=== PATIENT | female | born 1975 ===

== ENCOUNTER 2019-11-06 09:40 | Outpatient (RCR) | payer BC, OTHER ==
[~2019-11-06 09:40] MED LIST: BIRTHCONTROL PO; HYDR1TAB PO; LVT.05T PO; LVT.088T PO
== END 2020-02-04 | disposition home or self-care (01) ==
LOC: CARD 09:40
PROVIDERS: ATTEND Internal Medicine Interventional Cardiology
DX: I47.1 Supraventricular tachycardia (principal); E03.9 Hypothyroidism, unspecified
CPT/HCPCS: 93270; 93306

== ENCOUNTER 2020-12-25 16:29 | Emergency (ER) | payer BC, OTHER ==
[~2020-12-25] VITALS: Ht 165 cm; Wt 106.0 kg
--- NOTE | 2020-12-25 16:34 | ED Abdominal Pain ---
General Stated Complaint: LOWER ADB PAIN History of Present Illness Date Seen by Provider: Dec 25, 2020 Time Seen by Provider: 16:34 Initial Comments 45-year-old female presents with lower abdominal pain. Patient reports that a week ago she gave at home via a heel slicker. That there was no complications. Patient reports that she was doing well but she has normal discomfort. However today she has significantly worse lower abdominal pain. Patient denies any urinary discomfort. Patient does report she also thinks she has some left-sided mastitis with some mild erythema, warmth and tenderness to the left breast. Patient reports maybe some mild chills but no fever, cough or other systemic complaints. Allergies and Home Medications Allergies Coded Allergies: codeine (Verified Allergy, Mild, 11/05/12) Home Medications Dicloxacillin Sodium 500 Mg Capsule, 500 MG PO QID Prescribed by: JAVIER BENAVIDEZ on 12/25/201946 Levothyroxine Sodium 88 Mcg Tablet, 88 MCG PO DAILY, (Reported) [Birthcontrol] , 1 TAB PO DAILY, (Reported) Patient Home Medication List Home Medication List Reviewed: Yes Review of Systems Review of Systems Constitutional: chills; No fever Respiratory: Denies Cough Cardiovascular: No Symptoms Reported Gastrointestinal: See HPI Genitourinary: See HPI Musculoskeletal: no symptoms reported Skin: no symptoms reported Psychiatric/Neurological: No Symptoms Reported Endocrine: No Symptoms Reported Past Gzkmhvh-Rpweeu-Lldflr Hx Seasonal Allergies Seasonal Allergies: No Past Medical History Gallbladder, Tonsillectomy Reproductive Disorders: No Sexually Transmitted Disease: No Gall Bladder Disease Hypothyroidsim Physical Exam Vital Signs Vital Signs - First Documented 12/25/20 16:34 Temp 36.3 Pulse 98 Resp 20 B/P (MAP) 127/71 (89) Pulse Ox 100 O2 Delivery Room Air Capillary Refill : Height/Weight/BMI Height: 5'5" Weight: 195lbs. oz. 88.439245lh; BMI Method: General Appearance: WD/WN, no apparent distress Respiratory: chest non-tender, lungs clear Cardiovascular: normal peripheral pulses, regular rate, rhythm Gastrointestinal: soft, tenderness (Mild suprapubic tenderness), other (Normal 1 week fundal exam with appropriate firm, no significant tenderness) Extremities: normal range of motion, non-tender Neurologic/Psychiatric: alert, normal mood/affect, oriented x 3 Skin: normal color, warm/dry Focused Exam Lactate Level 12/25/20 16:51: Lactic Acid Level 0.73 Lactic Acid Level Laboratory Tests Test 12/25/20 16:51 Lactic Acid Level 0.73 MMOL/L (0.50-2.00) Progress/Results/Core Measures Results/Orders Lab Results Laboratory Tests Test 12/25/20 16:34 12/25/20 16:44 12/25/20 16:51 Range/Units Urine Color PINK Urine Clarity SLIGHTLY CLOUDY Urine pH 6.0 5-9 Urine Specific [place] <=1.005 1.016-1.022 Urine Protein NEGATIVE NEGATIVE Urine Glucose (UA) NEGATIVE NEGATIVE Urine Ketones NEGATIVE NEGATIVE Urine Nitrite NEGATIVE NEGATIVE Urine Bilirubin NEGATIVE NEGATIVE Urine Urobilinogen 0.2 < = 1.0 MG/DL Urine Leukocyte Esterase 3+ H NEGATIVE Urine RBC (Auto) 3+ H NEGATIVE Urine RBC 10-25 H /HPF Urine WBC 50-100 H /HPF Urine Squamous Epithelial Cells 25-50 H /HPF Urine Crystals NONE /LPF Urine Bacteria MODERATE H /HPF Urine Casts NONE /LPF Urine Mucus LARGE H /LPF Urine Culture Indicated YES White Blood Count 10.1 4.3-11.0 10^3/uL Red Blood Count 4.52 3.80-5.11 10^6/uL Hemoglobin 11.8 11.5-16.0 g/dL Hematocrit 38 35-52 % Mean Corpuscular Volume 83 80-99 fL Mean Corpuscular Hemoglobin 26 25-34 pg Mean Corpuscular Hemoglobin Concent 32 32-36 g/dL Red Cell Distribution Width 13.8 10.0-14.5 % Platelet Count 299 130-400 10^3/uL Mean Platelet Volume 9.0 9.0-12.2 fL Immature Granulocyte % (Auto) 1 % Neutrophils (%) (Auto) 73 42-75 % Lymphocytes (%) (Auto) 19 12-44 % Monocytes (%) (Auto) 6 0-12 % Eosinophils (%) (Auto) 1 0-10 % Basophils (%) (Auto) 0 0-10 % Neutrophils # (Auto) 7.3 1.8-7.8 X 10^3 Lymphocytes # (Auto) 1.9 1.0-4.0 X 10^3 Monocytes # (Auto) 0.6 0.0-1.0 X 10^3 Eosinophils # (Auto) 0.1 0.0-0.3 10^3/uL Basophils # (Auto) 0.0 0.0-0.1 10^3/uL Immature Granulocyte # (Auto) 0.1 0.0-0.1 10^3/uL Sodium Level 137 135-145 MMOL/L Potassium Level 3.6 3.6-5.0 MMOL/L Chloride Level 104 98-107 MMOL/L Carbon Dioxide Level 25 21-32 MMOL/L Anion Gap 8 5-14 MMOL/L Blood Urea Nitrogen 9 7-18 MG/DL Creatinine 0.65 0.60-1.30 MG/DL Estimat Glomerular Filtration Rate 99 BUN/Creatinine Ratio 14 Glucose Level 110 H 70-105 MG/DL Calcium Level 8.3 L 8.5-10.1 MG/DL Corrected Calcium 8.6 8.5-10.1 MG/DL Total Bilirubin 0.5 0.1-1.0 MG/DL Aspartate Amino Transf (AST/SGOT) 10 5-34 U/L Alanine Aminotransferase (ALT/SGPT) 15 0-55 U/L Alkaline Phosphatase 123 40-136 U/L Total Protein 6.7 6.4-8.2 GM/DL Albumin 3.6 3.2-4.5 GM/DL Lactic Acid Level 0.73 0.50-2.00 MMOL/L My Orders Orders - BENAVIDEZ,JAVIER L DO Cbc With Automated Diff (12/25/20 16:42) Comprehensive Metabolic Panel (12/25/20 16:42) Ua Culture If Indicated (12/25/20 16:42) Blood Culture (12/25/20 16:42) Lactic Acid Analyzer (12/25/20 16:42) Abdomen Flat & Upright/Decub (12/25/20 16:42) Ed Iv/Invasive Line Start (12/25/20 16:42) Urine Culture (12/25/20 16:34) Ct Abdomen/Pelvis W (12/25/20 17:15) Cephalexin Capsule (Keflex Capsule) (12/25/20 19:45) Vital Signs/I&O 12/25/20 12/25/20 16:34 20:22 Temp 36.3 Pulse 98 98 Resp 20 20 B/P (MAP) 127/71 (89) 127/71 (89) Pulse Ox 100 100 O2 Delivery Room Air Room Air Progress Progress Note : Progress Note Patient with no vaginal discharge, fever or elevated white count. Discussed with Dr. Sam who feels is likely more of a UTI versus retained placental products based on exam labs and review a CAT scan. We will treat her with dicloxacillin for her mastitis and UTI. I did have a long discussion with patient regarding need to follow-up with her primary care provider return to the ER if she develops fever discharge or worsening lower abdominal pain. Patient voices understanding is discharged Departure Impression Primary Impression: Acute mastitis of right breast Additional Impression: Acute cystitis with hematuria Disposition: HOME, SELF-CARE Condition: Stable Departure-Patient Inst. Referrals: NO,LOCAL PHYSICIAN (PCP/Family) Primary Care Physician Patient Instructions: Mastitis, Urinary Tract Infection, Adult ED Add. Discharge Instructions: Follow-up with your primary care provider in 2 to 3 days for recheck of today's symptom Return to the ER for further evaluation if you develop fever, worsening lower abdominal pain or vaginal discharge Scripts Dicloxacillin Sodium (Dicloxacillin Sodium) 500 Mg Capsule 500 MG PO QID, #40 CAP Prov: JAVIER BENAVIDEZ DO 12/25/20 JAVIER BENAVIDEZ DO Dec 25, 2020 16:34
[2020-12-25 16:48] LABS: CLARITY,URINE SLIGHTLY CLOUDY; COLOR,URINE PINK; GLUCOSE, URINE (UA) NEGATIVE (NEGATIVE); KETONES,URINE NEGATIVE (NEGATIVE); PROTEIN,URINE NEGATIVE (NEGATIVE)
[2020-12-25 16:49] LABS: BACTERIA,URINE MODERATE /HPF; BILIRUBIN,URINE NEGATIVE (NEGATIVE); LEUKOCYTE ESTERASE ,URINE 3+ (NEGATIVE); NITRITE,URINE NEGATIVE (NEGATIVE); SQUAMOUS EPITHELIAL CELL,UR 25-50 /HPF; WBC,URINE 50-100 /HPF
[2020-12-25 16:52] LABS: BASOPHILS % (AUTO) 0 % (0-10); EOSINOPHILS # (AUTO) 0.1 10^3/uL (0.0-0.3); EOSINOPHILS % (AUTO) 1 % (0-10); HEMATOCRIT 38 % (35-52); HEMOGLOBIN 11.8 g/dL (11.5-16.0); LYMPHOCYTES # (AUTO) 1.9 X 10^3 (1.0-4.0); LYMPHOCYTES % (AUTO) 19 % (12-44); MEAN CORPUSCULAR HEMOGLOBIN 26 pg (25-34); MEAN CORPUSCULAR HGB CONC 32 g/dL (32-36); MEAN CORPUSCULAR VOLUME 83 fL (80-99); MONOCYTES # (AUTO) 0.6 X 10^3 (0.0-1.0); MONOCYTES % (AUTO) 6 % (0-12); NEUTROPHILS # (AUTO) 7.3 X 10^3 (1.8-7.8); NEUTROPHILS % (AUTO) 73 % (42-75); PLATELET COUNT 299 10^3/uL (130-400); WHITE BLOOD COUNT 10.1 10^3/uL (4.3-11.0)
[2020-12-25 17:05] LABS: BILIRUBIN,TOTAL 0.5 MG/DL (0.1-1.0); CALCIUM 8.3 MG/DL (8.5-10.1); CREATININE SERUM 0.65 MG/DL (0.60-1.30); POTASSIUM 3.6 MMOL/L (3.6-5.0); TOTAL PROTEIN 6.7 GM/DL (6.4-8.2)
[2020-12-25 17:06] LABS: ALBUMIN 3.6 GM/DL (3.2-4.5)
--- NOTE | 2020-12-25 17:11 | Diagnostic Imaging Report ---
INDICATION: Lower abdominal pain, one week . TECHNIQUE: Supine and upright view of the abdomen 4:56 PM. CORRELATION STUDY: None. FINDINGS: Lung bases appear clear. Stomach mildly distended with air-fluid level. There is gas and stool through the colon. No evidence for large fecal impaction. A few gas-filled loops of small bowel are present in a nonobstructive pattern. No evidence for free intraperitoneal air. Cholecystectomy clips in the right upper quadrant. Increased density in the lower abdomen could be owing to enlarged uterus or distended bladder. IMPRESSION: Nonobstructive appearing bowel gas pattern. Mildly prominent gas distention throughout the gastrointestinal tract could reflect a mild ileus. Dictated by: Dictated on workstation # [id number]
[2020-12-25] MEDS ORDERED: TRANEXAMIC ACID INJECTION 1,000 MG in NS (IVPB) 100 ML IV ONE (17:15)
[2020-12-25] MEDS ORDERED: NS 100 ML (IVPB) BAG IV ONE (17:45)
[2020-12-25] MEDS ORDERED: HOLD METFORMIN - RECEIVED CONTRAST 20 ML VIAL IV SCH (17:45)
[2020-12-25] MEDS ORDERED: IOHEXOL 350 MG/ML 100 ML (OMNIPAQUE 350) VIAL IV ONE (17:45)
--- NOTE | 2020-12-25 18:29 | Diagnostic Imaging Report ---
PROCEDURE: CT abdomen and pelvis with contrast. TECHNIQUE: Multiple contiguous axial images were obtained through the abdomen and pelvis after administration of intravenous contrast. Auto Exposure Controls were utilized during the CT exam to meet ALARA standards for radiation dose reduction. All CT scans use one or more of the following dose optimizing techniques: automated exposure control, MA and/or KvP adjustment based on patient size and exam type or iterative reconstruction. INDICATION: One-week , lower abdominal pain. CORRELATION STUDY: None. FINDINGS: Examination is significantly compromised by motion artifact. LOWER THORAX: Appearing generally clear given motion. Heart size normal. LIVER: Unremarkable. GALLBLADDER: Cholecystectomy. SPLEEN: Unremarkable. PANCREAS: Very questionable fullness at the pancreatic head. Definitive mass is not however appreciated. ADRENAL GLANDS: Unremarkable. KIDNEYS: Normal configuration. No calcification or obstruction. ABDOMINAL AORTA: Unremarkable, nonaneurysmal. GASTROINTESTINAL TRACT: No obstruction or inflammation. Normal appendix. URINARY BLADDER: Largely decompressed. REPRODUCTIVE: Enlarged, heterogeneous. Appears to be abnormal prominence of the endometrium which has heterogeneous appearance. Scattered areas of asymmetric enhancement. Slightly more pronounced along the right fundal aspect. No significant pelvic fluid or pelvic abscess formation. OSSEOUS STRUCTURES: No acute abnormality. OTHER: None. IMPRESSION: 1. Enlarged heterogeneous and hypervascular appearance about the uterus. Some of this may be attributed to state. There is also what appears to be abnormal ill-defined prominence of the endometrium along with increased vascularity. Given overall findings, retained products of conception would be difficult to exclude. Correlation with pelvic ultrasound imaging is recommended. 2. Very questionable slight prominence in the region of the pancreatic head. No definitive mass or peripancreatic inflammatory changes. However, if indicated, correlation with pancreatic lab values recommended. 3. This examination is markedly compromised with significant patient motion artifact. Dictated by: Dictated on workstation # [id number]
[2020-12-25] MEDS ORDERED: KETAMINE INJECTION 500 MG in NS IV 500 ML 500 ML IV SCH (18:45)
[2020-12-25] MEDS ORDERED: CEPHALEXIN 250 MG (KEFLEX) CAP PO SCH (19:45)
[2020-12-25] MEDS ORDERED: DICL500C PO (19:47)
[2020-12-25 20:22] VITALS: BP 127/71
== END 2020-12-25 20:22 | disposition home or self-care (01) ==
LOC: EDUNIT# 16:29 → ER FS 16:30
DX: N61.0 Mastitis without abscess (principal); N30.01 Acute cystitis with hematuria; E03.9 Hypothyroidism, unspecified; Z79.890 Hormone replacement therapy; Z79.899 Other long term (current) drug therapy
CPT/HCPCS: 36415; 74019; 74177; 80053; 81000; 83605; 85025; 87040; 87077; 87088

== ENCOUNTER 2021-11-03 23:30 | Emergency (ER) | payer OTHER ==
[~2021-11-03] VITALS: Ht 165 cm; Wt 106.0 kg
[~2021-11-03 23:30] MED LIST changes: +DICL500C PO
--- NOTE | 2021-11-04 00:21 | ED Lower Extremity ---
General Chief Complaint: Lower Extremity Stated Complaint: ANKLE FX Source: patient Exam Limitations: no limitations History of Present Illness Date Seen by Provider: Nov 04, 2021 Time Seen by Provider: 00:11 Initial Comments Patient is a 46-year-old female who presents to the emergency department today with a chief complaint of right ankle pain. She was walking up some carpeted steps, her left foot slipped, her right foot did not and she fell down onto her right foot. Patient states that her foot was turned in an odd direction when she was able to roll over onto her knee and try to attempt to stand. She complains of mild pain at this point, a "2-3". She states she did hit her head, she did not have a loss of consciousness. No other complaints of injury reported. She arrives in a Mathew splint. Neurovascular intact to the right foot All other review of systems reviewed and negative except as stated Onset: just prior to arrival Severity: moderate Pain/Injury Location: right ankle Method of Injury: fell Modifying Factors: Improves With Immobilization; Worse With Jarring, Worse With Movement Allergies and Home Medications Allergies Coded Allergies: codeine (Verified Allergy, Mild, 11/05/12) Patient Home Medication List Home Medication List Reviewed: Yes Dicloxacillin Sodium (Dicloxacillin Sodium) 500 Mg Capsule, 500 MG PO QID Prescribed by: JAVIER BENAVIDEZ on 12/25/201946 Levothyroxine Sodium (Levothyroxine 88 Mcg Tab) 88 Mcg Tablet, 88 MCG PO DAILY, (Reported) Entered as Reported by: TRACY CHAU on 06/19/140 [Birthcontrol] , 1 TAB PO DAILY, (Reported) Entered as Reported by: LEX SMITH on 11/05/12 0120 Review of Systems Constitutional: see HPI EENTM: no symptoms reported Respiratory: no symptoms reported Cardiovascular: no symptoms reported Gastrointestinal: no symptoms reported Musculoskeletal: joint pain (right ankle) Skin: no symptoms reported Psychiatric/Neurological: No Symptoms Reported All Other Systems Reviewed Negative Unless Noted: Yes Past Lhawxzw-Sgnrdd-Adcqel Hx Seasonal Allergies Seasonal Allergies: No Past Medical History Gallbladder, Tonsillectomy Reproductive Disorders: No Sexually Transmitted Disease: No Gall Bladder Disease Hypothyroidsim Physical Exam Vital Signs Vital Signs - First Documented 11/04/21 00:08 Temp 37.3 Pulse 66 Resp 14 B/P (MAP) 115/65 (82) Pulse Ox 98 O2 Delivery Room Air Capillary Refill : Height, Weight, BMI Height: 5'5" Weight: 195lbs. oz. 88.971756uk; 38.00 BMI Method: General Appearance: WD/WN, no apparent distress Neck: non-tender, full range of motion, normal inspection Cardiovascular: regular rate, rhythm Respiratory: lungs clear, normal breath sounds, no respiratory distress, no accessory muscle use Hips: bilateral hip non-tender, bilateral hip normal inspection, bilateral hip normal range of motion, bilateral hip no evidence of injury Legs: bilateral leg non-tender, bilateral leg normal inspection, bilateral leg normal range of motion, bilateral leg no evidence of injury Knees: bilateral knee non-tender, bilateral knee normal inspection, bilateral knee normal range of motion, bilateral knee no evidence of injury Ankles: left ankle non-tender, left ankle normal inspection, left ankle normal range of motion, left ankle no evidence of injury; right ankle bone tenderness (medial), right ankle limited range of motion, right ankle pain, right ankle soft tissue tenderness, right ankle swelling Feet: bilateral foot non-tender, bilateral foot normal inspection, bilateral foot normal range of motion, bilateral foot no evidence of injury Neurologic/Psychiatric: alert, normal mood/affect, oriented x 3 Skin: normal color, warm/dry Procedures/Interventions Splinting and Joint Reduction : Pre-Proc Neuro Vasc Exam: normal Post-Proc Neuro Vasc Exam: normal Ordered: Crutches Hand-Made Type: orthoglass Splint Application: Short Leg Progress/Results/Core Measures Results/Orders My Orders Orders - JAMAAL KLEIN MD Ankle, Right, 3 Views (11/04/21 00:17) Vital Signs/I&O 11/04/21 00:08 Temp 37.3 Pulse 66 Resp 14 B/P (MAP) 115/65 (82) Pulse Ox 98 O2 Delivery Room Air Progress Progress Note : Time: 00:47 Progress Note Patient placed in a short leg posterior splint. Given crutches. Instructed that she can toe-touch weight-bear for balance. Given hydrocodone for pain. Given Dr. Casillas's contact information for follow-up. Return precautions provided. She verbalized understanding. All questions are sought and answered Diagnostic Imaging Diagonstic Imaging: Xray Comments Right ankle x-ray, distal fibular fracture, question posterior tibial fracture - interpreted by me Departure Impression Primary Impression: Fracture of fibula, distal Qualified Codes: S82.831A - Other fracture of upper and lower end of right fibula, initial encounter for closed fracture Disposition: 01 HOME, SELF-CARE Condition: Stable Departure-Patient Inst. Decision time for Depature: 00:48 Referrals: NO,LOCAL PHYSICIAN (PCP) Primary Care Physician SUSAN CASILLAS MD Patient Instructions: Fibula Fracture Add. Discharge Instructions: The splint on, do not remove it until you have follow-up with the orthopedic doctor, Dr. Casillas. Hydrocodone 1 every 6 hours as needed for pain. You can also take [id number] ibuprofen 3 tablets which is 600 mg every 6 hours as needed for pain. Ice pack to the right ankle, 3-4 times daily for 20 minutes at a time. Keep the foot elevated when at rest above your heart. If you have any new, concerning or emergent complaints please come back to the emergency room for reevaluation. I have also sent a prescription for Zofran, nausea medication to take if your pain medications are upsetting her stomach. You can have 1 every 8 hours as needed. Scripts Ondansetron (Ondansetron Odt) 4 Mg Tab.rapdis 4 MG PO Q8H PRN for nausea, #20 TAB Prov: JAMAAL KLEIN MD 11/04/21 Hydrocodone/Acetaminophen (Hydrocodone-Acetamin 5-325 mg) 5 Mg-325 Mg Tablet 1 TAB PO Q6H PRN for PAIN-MODERATE (5-7), #20 TAB Prov: JAMAAL KLEIN MD 11/04/21 Copy Copies To 1: SUSAN CASILLAS MD, KATHRYN M MD Nov 04, 2021 00:21
[2021-11-04] MEDS ORDERED: fentaNYL INJ 100 MCG/2 ML AMP IVP ONE (00:45)
[2021-11-04] MEDS ORDERED: HYDROcodone/APAP 7.5 MG/325 MG (LORTAB, LORCET PLUS) TABLET PO ONE (00:45)
[2021-11-04] MEDS ORDERED: ONDA4TAB11 PO (00:50)
[2021-11-04] MEDS ORDERED: ACHD5005 PO ×2 (00:50→08:36)
[2021-11-04 01:41] VITALS: BP 108/70
--- NOTE | 2021-11-04 07:55 | Diagnostic Imaging Report ---
Right ankle at 1220 hours. INDICATION: Injury, ankle pain 3 views were obtained. There are no prior studies available for comparison. There is an oblique displaced fracture of the distal tibia at the level of the plafond. The fracture fragment seemed to be only slightly displaced. The lateral view also suggests that there is a nondisplaced fracture extending through the posterior malleolus of the distal tibia.. There is also question a nondisplaced fracture of the medial malleolus. In addition ankle mortise is slightly widened. The talar dome is smooth. There is soft tissue edema about the ankle joint. Impression: 1. There is a displaced fracture of the distal fibula, and a nondisplaced fracture of the posterior malleolus over the distal tibia. There may also be a nondisplaced fracture of the medial malleolus. 2. The ankle mortise is slightly widened. 3. If further imaging evaluation of the extent injury to the ankle joint is desired, then CT would be recommended. Dictated by: Dictated on workstation # [id number]
== END 2021-11-04 01:36 | disposition home or self-care (01) ==
LOC: EDUNIT# 23:30 → ER 23:32
DX: S82.831A Other fracture of upper and lower end of right fibula, initial encounter for closed fracture (principal); Z28.310 Unvaccinated for COVID-19; W10.8XXA Fall (on) (from) other stairs and steps, initial encounter
CPT/HCPCS: 29505; 73610